=== PATIENT | male | born 1995 | race Caucasian/White ===

== ENCOUNTER 2017-02-21 03:31 | Emergency (ER) | payer SELFPAY ==
[~2017-02-21] VITALS: Ht 170.2 cm; Wt 67.6 kg
--- NOTE | 2017-02-21 03:31 | NUR ---
[facility] TO ER OF1
[2017-02-21 03:37] VITALS: BP 132/61
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
--- NOTE | 2017-02-21 03:59 | NUR ---
Patient being evaluated by physician at bedside.
[2017-02-21] MEDS ORDERED: KETOROLAC 60 MG/2 ML VIAL IM ONE (04:00)
--- NOTE | 2017-02-21 04:23 | NUR ---
PT SENT TO XRAY WITH [facility] AND CONTINUITY MANAGER [id number].
--- NOTE | 2017-02-21 04:45 | NUR ---
RESULT BACK AND NOTED BY ERMD AND FOR D/C WITH [facility] [employer] CUSTODY
[2017-02-21 04:50] VITALS: BP 132/61
--- NOTE | 2017-02-21 04:50 | NUR ---
PATIENT BIB [facility] [employer]. PATIENT EXAMINED BY DR. KILGORE. PATIENT MEDICALLY CLEARED AND RELEASED IN CUSTODY IN STABLE CONDITION. ORIGINAL PRE-BOOK FORM GIVEN TO [employer]
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
== END 2017-02-21 04:50 ==
LOC: MED 03:32
DX: Z02.89 Encounter for other administrative examinations (principal); M25.511 Pain in right shoulder
CPT/HCPCS: 73030; 96372; 99284; J1885